=== PATIENT | male | born 2000 | race Caucasian/White ===

== ENCOUNTER 2020-04-02 20:39 | Outpatient (REF) | payer BC, SELFPAY ==
[2020-04-02 19:18] LABS: Abs Immature Grans 0.01 10^3/uL (0.0-0.06); Absolute Basophil Count 0.04 10^3/uL (0.0-0.2); Absolute Eosinophil Count 0.12 10^3/uL (0.0-0.7); Absolute Lymphocyte Count 2.19 10^3/uL (1.2-3.4); Absolute Monocyte Count 0.62 10^3/uL (0.1-0.8); Basophils % 0.6; Eosinophils % 1.7; HCT 45.9 % (40.0-50.0); HGB 15.9 g/dL (13.5-17.5); Immature Grans % 0.1; Lymphocytes % 30.9; MCH 31.7 pg (27.0-33.0); MCHC 34.6 % (32.0-36.0); MCV 91.4 fL (80-95); MPV 11.1 fL (8.0-11.0); Monocytes % 8.8; Neutrophils % 57.9; Nucleated RBC 0 %; Platelet Count 214 10^3/uL (130-400); RBC 5.02 10^6/uL (4.36-5.78); RDW 11.7 % (11.8-14.1); RDW-SD 39.2 fL; WBC 7.08 10^3/uL (4.4-10.8)
[2020-04-02 19:54] LABS: ALT 28 U/L (16-63); AST 26 U/L (15-37); Albumin 4.3 g/dL (3.4-5.0); Alkaline Phosphatase 72 U/L (46-116); Anion Gap 6.4 mmol/L (3-11); BUN 22 mg/dL (7-18); Bilirubin, Total 0.5 mg/dL (0.2-1.0); CO2 29.6 mmol/L (21.0-32.0); CREATININE 1.2 mg/dL (0.70-1.30); Calcium 9.2 mg/dL (8.5-10.1); Chloride 103 mmol/L (98-107); Glucose 102 mg/dL (74-106); Potassium 4.1 mmol/L (3.5-5.1); Sodium 139 mmol/L (136-145); TSH (W/Ref FT4) 1.88 uIU/mL (0.36-3.74); Total Protein 7.1 g/dL (6.4-8.2)
[2020-04-06 14:13] LABS: IgA 117 mg/dL (85-499); Interpretation (See Note); Tissue Transglutaminase IgA <1.2 U/mL (<4.0)
== END 2020-04-02 20:59 ==
LOC: NCHCN 20:39
PROVIDERS: PCP Internal Medicine; Visit Provider Physician Assistant
DX: J45.30 Mild persistent asthma, uncomplicated (principal); L50.9 Urticaria, unspecified; L70.9 Acne, unspecified
CPT/HCPCS: 80053; 82784; 83516; 84443; 85025

== ENCOUNTER 2020-07-08 17:53 | Outpatient (REF) | payer BC, SELFPAY ==
[2020-07-10 15:19] LABS: COVID-19 RT-PCR UVMMC Result Negative (Negative)
== END 2020-07-08 17:54 | disposition home or self-care (01) ==
LOC: NCHCN 17:53
PROVIDERS: PCP Internal Medicine; Visit Provider Physician Assistant
DX: Z20.822 Contact with and (suspected) exposure to COVID-19 (principal); J02.9 Acute pharyngitis, unspecified
CPT/HCPCS: U0003

== ENCOUNTER 2020-12-07 14:45 | Outpatient (REF) | payer BC, SELFPAY ==
[2020-12-09 13:37] LABS: COVID-19 RT-PCR UVMMC Result Positive (Negative)
== END 2020-12-07 14:46 | disposition home or self-care (01) ==
LOC: NCHCN 14:45
PROVIDERS: PCP Internal Medicine; Visit Provider Physician Assistant
DX: Z20.822 Contact with and (suspected) exposure to COVID-19 (principal); R06.02 Shortness of breath; R09.89 Other specified symptoms and signs involving the circulatory and respiratory systems
CPT/HCPCS: U0003

== ENCOUNTER 2021-12-30 15:46 | Outpatient (REF) | payer BC, SELFPAY ==
[2021-12-30 19:42] LABS: D-Dimer 239 ng/mlFEU (<500)
== END 2021-12-30 15:47 | disposition home or self-care (01) ==
LOC: NCHCN 15:46
PROVIDERS: PCP Internal Medicine; Visit Provider Nurse Practitioner Family
DX: R06.02 Shortness of breath (principal); Z86.16 Personal history of COVID-19
CPT/HCPCS: 85379